=== PATIENT | male | born 1995 | race Caucasian/White ===

== ENCOUNTER 2020-11-12 14:26 | Emergency (ER) | payer BC ==
[2020-11-12 15:29] LABS: Absolute Lymphocytes (CBC) 1.1 K/uL (0.7-4.9); Basophils % 0.3 % (0-1.3); Hematocrit 42.6 % (39.6-49.0); Lymphocytes % 10.1 % (15.3-44.8); MPV 8.4 fL (7.6-11.3); RBC Red Blood Cell Count 4.91 M/uL (4.33-5.43)
[2020-11-12] MEDS ORDERED: NA CHLORIDE 0.9% 1,000 ML ONE (15:33)
[2020-11-12 15:34] LABS: Protime INR 1.09
[2020-11-12 15:43] LABS: Barbiturates NEGATIVE (NEGATIVE); Benzodiazepines NEGATIVE (NEGATIVE); Cocaine NEGATIVE (NEGATIVE); METHAMPHETAM NEGATIVE (NEGATIVE); Methadone NEGATIVE (NEGATIVE); Opiates NEGATIVE (NEGATIVE); Phencyclidine NEGATIVE (NEGATIVE); THC Cannibis NEGATIVE (NEGATIVE)
--- NOTE | 2020-11-12 15:44 | RAD REPORT ---
EXAM DESCRIPTION: CT - Head C Spine Mpr Wo Con - 11/12/2020 3:27 pm CLINICAL HISTORY: Seizure. Head and neck injury status post fall. Head and neck pain COMPARISON: None. TECHNIQUE: Computed axial tomography of the head and cervical spine was obtained. Sagittal and coronal reconstruction was performed. All CT scans are performed using dose optimization technique as appropriate and may include automated exposure control or mA/KV adjustment according to patient size. FINDINGS: An intracranial bleed is not seen. The ventricles are normal in caliber. An extra-axial fl uid collection is not noted.Fluid within the visualized sinuses and mastoids is not seen A cervical fracture is not visualized. No dislocation is noted. IMPRESSION: No acute intracranial abnormality is seen. A cervical fracture is not visualized. If the patient continues to have symptoms to suggest intracra nial /spinal cord pathology then MRI would be recommended
[2020-11-12 15:49] LABS: ALT/SGPT 31 U/L (12-78); AST/SGOT 16 U/L (15-37); Albumin 4.3 g/dL (3.4-5.0); Alkaline Phosphatase 107 U/L (45-117); BUN Blood Urea Nitrogen 14 mg/dL (7-18); Bicarbonate 27 mmol/L (21-32); Bilirubin Direct < 0.1 mg/dL (0-0.2); Bilirubin Total 0.3 mg/dL (0.2-1.0); Glucose Level 102 mg/dL (74-106); Potassium 3.8 mmol/L (3.5-5.1); Protein, Total 7.8 g/dL (6.4-8.2); Sodium Level 141 mmol/L (136-145)
[2020-11-12 16:20] LABS: Urine Blood NEGATIVE (NEG); Urine Glucose NEGATIVE (NEG); Urine Protein TRACE (NEG); Urine Specific Gravity >1.030 (1.005-1.030); Urine pH 5.5 (5.0-7.0)
--- NOTE | 2020-11-12 16:36 | ER ---
Nurse's Notes [facility] Name: Mario Boss Jr Age: 25 yrs Sex: Male : 1995 Arrival Date: 11/12/2020 Time: 14:22 Bed 4 Private MD: Diagnosis: Syncope and collapse;Superficial injury of head Presentation: 11/12 14:23 Chief complaint:. Coronavirus screen: Client denies travel out of the [place] in the last jl7 14 days. At this time, the client does not indicate any symptoms associated with coronavirus-19. Ebola Screen: No symptoms or risks identified at this time. Initial Sepsis Screen: Does the patient meet any 2 criteria? No. Patient's initial sepsis screen is negative. Does the patient have a suspected source of infection? No. Patient's initial sepsis screen is negative. Risk Assessment: Do you want to hurt yourself or someone else? Patient reports no desire to harm self or others. Onset of symptoms was November 12, 2020. 14:23 Method Of Arrival: EMS: [facility] 14:23 Acuity: ADRIANO 2 7 14:23 Chief complaint: EMS states: pt was at work and had a witnessed 'convulsions.' On EMS sv arrival pt was sitting supine, confused but awake. HR 160s hypertensive. After a while pt became more alert and stated he was watching other employees pressure wash something and then he remembers waking up on the ground. No hx of seizures. Reports nausea at this time. Triage Assessment: 14:25 General: Appears in no apparent distress. uncomfortable, Behavior is calm, cooperative, jl7 appropriate for age. Pain: Denies pain. Neuro: Level of Consciousness is awake, alert, obeys commands, Oriented to person, place, time, situation, Pupils are PERRLA, Pupil Size: 7 mm. Cardiovascular: Denies chest pain, shortness of breath, Patient's skin is warm and dry. Rhythm is sinus tachycardia. Respiratory: Airway is patent Respiratory effort is even, unlabored, Respiratory pattern is regular, symmetrical. GI: Patient currently denies diarrhea, nausea, vomiting. Derm: Skin is pink, warm \T\ dry. Historical: - Allergies: 14:25 No Known Allergies; jl7 - Home Meds: 14:25 None [Active]; jl7 - PMHx: 14:25 None; jl7 - PSHx: 14:25 None; jl7 - Immunization history:: Adult Immunizations unknown. - Social history:: Smoking status: unknown. Screenin:26 Abuse screen: Denies threats or abuse. Denies injuries from another. Nutritional sv screening: No deficits noted. Tuberculosis screening: No symptoms or risk factors identified. Fall Risk None identified. Assessment: 14:27 General: See triage assessment. jl7 16:19 Reassessment: Patient appears in no apparent distress at this time. No changes from jl7 previously documented assessment. Patient and/or family updated on plan of care and expected duration. Pain level reassessed. Patient is alert, oriented x 3, equal unlabored respirations, skin warm/dry/pink. Vital Signs: 14:23 BP 139 / 84; Pulse 124; Resp 22; Temp 98.1; Pulse Ox 97% ; Weight 72.57 kg; jl7 15:00 BP 128 / 89; Pulse 108; Resp 27; Pulse Ox 98% ; sv 16:29 BP 118 / 65; Pulse 82; Resp 17; Pulse Ox 99% ; jl7 ED Course: 14:22 Patient arrived in ED. jl7 14:23 Luis Angel Nicholson MD is Attending Physician. kdr 14:24 Triage completed. jl7 14:26 Arm band placed on. sv 14:26 Patient has correct armband on for positive identification. Bed in low position. Call sv light in reach. Side rails up X2. Seizure precautions initiated. cut off saw operator pipe blanks on. Pulse ox on. Sitter at bedside. Door closed. Head of bed elevated. 14:27 Deena Cisse, RN is Primary Nurse. sv 15:03 Primary Nurse role handed off by Deena Cisse, SHONDA jl7 15:03 Codi Webb, SHONDA is Primary Nurse. jl7 15:10 Inserted saline lock: 20 gauge in right antecubital area, using aseptic technique. sv Blood collected. 15:22 Initial lab(s) drawn, by me, sent to lab. jl7 15:27 CT Head C Spine In Process Unspecified. EDMS 16:53 No provider procedures requiring assistance completed. IV discontinued, intact, jl7 bleeding controlled, No redness/swelling at site. Pressure dressing applied. Administered Medications: 15:19 Drug: NS 0.9% 1000 ml Route: IV; Rate: 1 bolus; Site: right antecubital; sv 16:30 Follow up: Response: No adverse reaction; IV Status: Completed infusion; IV Intake: jl7 1000ml Intake: 16:30 IV: 1000ml; Total: 1000ml. jl7 Outcome: 16:36 Discharge ordered by . kdr 16:53 Discharged to home ambulatory. jl7 16:53 Condition: stable 16:53 Discharge instructions given to patient, Instructed on discharge instructions, follow up and referral plans. Demonstrated understanding of instructions, follow-up care. 16:54 Patient left the ED. jl7 Signatures: Dispatcher [employer] Deena Miller RN RN Luis Angel Bryant MD MD kdr Leal, Jahala, RN RN jlJt
--- NOTE | 2020-11-12 16:36 | EDPHYS ---
Physician Documentation [facility] Name: Mario Boss Jr Age: 25 yrs Sex: Male : 1995 Arrival Date: 11/12/2020 Time: 14:22 Bed 4 Private MD: ED Physician Luis Angel Nicholson HPI: 11/13 11:49 This 25 yrs old Male presents to ER via EMS with complaints of Seizure. kdr 11:49 The patient presents after having a possible seizure episode, May have had convulsive kdr activity but it is not entirely clear, the episode(s) was witnessed, by co-worker(s). Character of seizure(s): Loss of consciousness: the patient experienced loss of consciousness, Motor activity: generalized, Incontinence: none, Apnea: the patient did not experience apnea, Circulation: the patient did not experience evidence of pulse disturbance. Seizure onset: just prior to arrival. Context: the seizure(s) was witnessed, by co-worker(s), occurred at work, occurred while the patient was standing, Contributing factors: unknown. Seizure Hx: the patient has no previous seizure history. Associated injury: Head/face: right temporal area and right occipital area. EMS care: none. Current symptoms: Currently, the patient is not experiencing any symptoms, the patient feels back to baseline. The patient has not experienced similar symptoms in the past. The patient has not recently seen a physician. Historical: - Allergies: 11/12 14:25 No Known Allergies; jl7 - Home Meds: 14:25 None [Active]; jl7 - PMHx: 14:25 None; jl7 - PSHx: 14:25 None; jl7 - Immunization history:: Adult Immunizations unknown. - Social history:: Smoking status: unknown. ROS: 11/13 11:49 Constitutional: Negative for fever, chills, and weight loss, Eyes: Negative for injury, kdr pain, redness, and discharge, ENT: Negative for injury, pain, and discharge, Neck: Negative for injury, pain, and swelling, Cardiovascular: Negative for chest pain, palpitations, and edema, Respiratory: Negative for shortness of breath, cough, wheezing, and pleuritic chest pain, Abdomen/GI: Negative for abdominal pain, nausea, vomiting, diarrhea, and constipation, Back: Negative for injury and pain, : Negative for injury, bleeding, discharge, and swelling, MS/Extremity: Negative for injury and deformity, Skin: Negative for injury, rash, and discoloration, Psych: Negative for depression, anxiety, suicide ideation, homicidal ideation, and hallucinations, Allergy/Immunology: Negative for hives, rash, and allergies. Neuro: Positive for altered mental status, seizure activity, Negative for dizziness, gait disturbance, headache, hearing loss, loss of consciousness. Exam: 11:49 Constitutional: This is a well developed, well nourished patient who is awake, alert, kdr and in no acute distress. Eyes: Pupils equal round and reactive to light, extra-ocular motions intact. Lids and lashes normal. Conjunctiva and sclera are non-icteric and not injected. Cornea within normal limits. Periorbital areas with no swelling, redness, or edema. Neck: Trachea midline, no thyromegaly or masses palpated, and no cervical lymphadenopathy. Supple, full range of motion without nuchal rigidity, or vertebral point tenderness. No Meningismus. Chest/axilla: Normal chest wall appearance and motion. Nontender with no deformity. No lesions are appreciated. Cardiovascular: Regular rate and rhythm with a normal S1 and S2. No gallops, murmurs, or rubs. Normal PMI, no JVD. No pulse deficits. Respiratory: Lungs have equal breath sounds bilaterally, clear to auscultation and percussion. No rales, rhonchi or wheezes noted. No increased work of breathing, no retractions or nasal flaring. Abdomen/GI: Soft, non-tender, with normal bowel sounds. No distension or tympany. No guarding or rebound. No evidence of tenderness throughout. Back: No spinal tenderness. No costovertebral tenderness. Full range of motion. Skin: Warm, dry with normal turgor. Normal color with no rashes, no lesions, and no evidence of cellulitis. MS/ Extremity: Pulses equal, no cyanosis. Neurovascular intact. Full, normal range of motion. Neuro: Awake and alert, GCS 15, oriented to person, place, time, and situation. Cranial nerves II-XII grossly intact. Motor strength 5/5 in all extremities. Sensory grossly intact. Cerebellar exam normal. Normal gait. Psych: Awake, alert, with orientation to person, place and time. Behavior, mood, and affect are within normal limits. 11:49 Head/face: Noted is contusion, that is superficial, of the right temporal area and right occipital area, swelling, that is mild, of the right temporal area and right occipital area, tenderness, that is mild, of the right temporal area and right occipital area. Vital Signs: 11/12 14:23 BP 139 / 84; Pulse 124; Resp 22; Temp 98.1; Pulse Ox 97% ; Weight 72.57 kg; jl7 15:00 BP 128 / 89; Pulse 108; Resp 27; Pulse Ox 98% ; sv 16:29 BP 118 / 65; Pulse 82; Resp 17; Pulse Ox 99% ; jl7 MDM: 16:36 Patient medically screened. [facility] 11/13 11:49 Data reviewed: vital signs, nurses notes, lab test result(s), radiologic studies. kdr Counseling: I had a detailed discussion with the patient and/or guardian regarding: the historical points, exam findings, and any diagnostic results supporting the discharge/admit diagnosis, lab results, radiology results, the need for outpatient follow up. 11/12 15:12 Order name: Acetaminophen; Complete Time: 16: [facility] 11/12 15:12 Order name: Basic Metabolic Panel; Complete Time: 16: [facility] 11/12 15:12 Order name: CBC with Diff; Complete Time: 16: [facility] 11/12 15:12 Order name: ETOH Level; Complete Time: 16: [facility] 11/12 15:12 Order name: Hepatic Function; Complete Time: 16: [facility] 11/12 15:12 Order name: PT-INR; Complete Time: 16:35 [facility] 11/12 15:12 Order name: CT Head C Spine; Complete Time: 16:35 [facility] 11/12 15:12 Order name: Ptt, Activated; Complete Time: 16:35 [facility] 11/12 15:12 Order name: Salicylate; Complete Time: 16:35 [facility] 11/12 15:12 Order name: Urine Drug Screen; Complete Time: 16: [facility] 11/12 15:12 Order name: IV Saline Lock; Complete Time: 15: [facility] 11/12 15:12 Order name: Labs collected and sent; Complete Time: 15: [facility] 11/12 15:34 Order name: Urine Dipstick--Ancillary (enter results); Complete Time: 16:35 em1 11/12 15:12 Order name: Urine Dipstick-Ancillary (obtain specimen); Complete Time: 16:30 kdr Administered Medications: 11/12 15:19 Drug: NS 0.9% 1000 ml Route: IV; Rate: 1 bolus; Site: right antecubital; sv 16:30 Follow up: Response: No adverse reaction; IV Status: Completed infusion; IV Intake: jl7 1000ml Disposition: 11/12/20 16:36 Discharged to Home. Impression: Syncope and collapse, Superficial injury of head. - Condition is Stable. - Discharge Instructions: Seizure, Adult, [id number], Syncope, [id number]. - Medication Reconciliation Form, Thank You Letter, Antibiotic Education, Prescription Opioid Use, Work release form form. - Follow up: Private Physician; When: 2 - 3 days; Reason: If symptoms return, Further diagnostic work-up, Recheck today's complaints, Continuance of care, Re-evaluation by your physician. - Problem is new. - Symptoms are resolved. Signatures: Dispatcher [employer] Deena Miller RN RN sv Luis Angel Nicholson MD MD kdr Leal, Jahala, RN RN jl7 Corrections: (The following items were deleted from the chart) 16:54 16:36 11/12/2020 16:36 Discharged to Home. Impression: Syncope and collapse; jl7 Superficial injury of head. Condition is Stable. Forms are Medication Reconciliation Form, Thank You Letter, Antibiotic Education, Prescription Opioid Use. Follow up: Private Physician; When: 2 - 3 days; Reason: If symptoms return, Further diagnostic work-up, Recheck today's complaints, Continuance of care, Re-evaluation by your physician. Problem is new. Symptoms are resolved. kdr
[2020-11-12 17:57] VITALS: BP 118/65; O2SAT 99
== END 2020-11-12 16:54 | disposition home or self-care (01) ==
LOC: ER 14:26
DX: S00.90XA Unspecified superficial injury of unspecified part of head, initial encounter (principal); R41.82 Altered mental status, unspecified; R56.9 Unspecified convulsions
CPT/HCPCS: 85025; 80048; 36415; 80320; 80329 ×2; 85610; 80076; 80307 ×8; 85730; 81003; 70450; 72125; 96360; 99285; J7030